=== PATIENT | male | born 1965 | race American Indian/Alaskan Native ===

== ENCOUNTER 2021-07-13 02:25 | Emergency (ER) | payer OTHER ==
[2021-07-13 02:32] VITALS: BP 145/103
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
== END 2021-07-13 03:23 | disposition home or self-care (01) ==
LOC: ED 02:25
DX: T14.8XXA Other injury of unspecified body region, initial encounter (principal); X58.XXXA Exposure to other specified factors, initial encounter; Y93.89 Activity, other specified; Y92.89 Other specified places as the place of occurrence of the external cause; Y99.8 Other external cause status
CPT/HCPCS: 99283